=== PATIENT | male | born 1990 | race Two or more races ===

== ENCOUNTER 2020-04-04 16:38 | Emergency (ER) | payer SELFPAY ==
[~2020-04-04] VITALS: Ht 180.3 cm; Wt 106.4 kg
[2020-04-04 19:27] LABS: BASOPHILS % (AUTO) 0.7 % (0.0-2.0); EOSINOPHILS % (AUTO) 0.2 % (1.0-6.0); HEMATOCRIT 42.6 % (41-53); HEMOGLOBIN 13.8 g/dL (13.5-17.5); LYMPHOCYTES # (AUTO) 2.4 K/uL (1.0-4.8); LYMPHOCYTES % (AUTO) 25.7 % (22.0-44.0); MEAN CORPUSCULAR HEMOGLOBIN 28.8 pg (26.0-34.0); MEAN CORPUSCULAR HGB CONC 32.3 G/dL (31.0-37.0); MEAN CORPUSCULAR VOLUME 89 fL (80-100); MONOCYTES # (AUTO) 0.5 K/uL (0.1-1.0); MONOCYTES % (AUTO) 5.8 % (2.0-9.0); NEUTROPHILS # (AUTO) 6.4 K/uL (1.8-7.7); NEUTROPHILS % (AUTO) 67.6 % (40.0-70.0); PLATELET COUNT (AUTO) 230 K/uL (150-450); RED BLOOD CELL COUNT(AUTO) 4.77 MIL/uL (4.50-5.90); RED CELL DISTRIBUTION WIDTH 13.6 % (11.5-14.5)
[2020-04-04 19:33] LABS: ANION GAP 8 mmol/L (8-16); CALCIUM, TOTAL 9.3 mg/dL (8.8-10.5); CARBON DIOXIDE 28 mmol/L (22-29); CHLORIDE 106 mmol/L (98-107); CREATININE 0.93 mg/dL (0.60-1.30); GLOMERULAR FILTR. RATE CALC > 60 mL/min (>60); GLUCOSE,RANDOM 93 mg/dL (70-110); POTASSIUM 4.2 mmol/L (3.5-5.1); SODIUM SERUM 142 mmol/L (136-145); UREA NITROGEN, BLOOD 15 mg/dL (7-18)
[2020-04-04 19:40] LABS: ALANINE AMINOTRANSFERASE 29 U/L (12-78); ALBUMIN 4.5 g/dL (3.4-5.0); ALKALINE PHOSPHATASE 65 U/L (46-116); ASPARTATE AMINOTRANSFERASE 23 U/L (15-37); BILIRUBIN,TOTAL 0.3 mg/dL (0.1-1.0); TOTAL PROTEIN, SERUM 8.3 g/dL (6.4-8.2)
[2020-04-04 19:41] LABS: INR 1.1 (0.9-1.1); PROTHROMBIN TIME 11.7 SEC (9.4-11.6)
[2020-04-04 19:53] VITALS: BP 140/75
== END 2020-04-04 21:01 | disposition home or self-care (01) ==
LOC: EMS 16:39
DX: J02.9 Acute pharyngitis, unspecified (principal); R09.81 Nasal congestion; F12.90 Cannabis use, unspecified, uncomplicated
CPT/HCPCS: 36415-L1; 36415-TC; 71046; 71046-TC

== ENCOUNTER 2021-04-19 14:28 | Emergency (ER) | payer OTHER ==
[~2021-04-19] VITALS: Ht 180.3 cm; Wt 97.7 kg
[2021-04-19 14:55] VITALS: BP 135/67
== END 2021-04-19 16:47 | disposition home or self-care (01) ==
LOC: EMS 14:28
DX: K21.00 Gastro-esophageal reflux disease with esophagitis, without bleeding (principal); F12.90 Cannabis use, unspecified, uncomplicated
CPT/HCPCS: 71046; 99283

== ENCOUNTER 2021-05-04 11:52 | Emergency (ER) | payer OTHER ==
[~2021-05-04] VITALS: Ht 188 cm; Wt 100.0 kg
[2021-05-04 11:53] VITALS: BP 111/73
== END 2021-05-04 14:37 | disposition home or self-care (01) ==
LOC: EMS 12:02
DX: R04.2 Hemoptysis (principal); F12.90 Cannabis use, unspecified, uncomplicated
CPT/HCPCS: 99281; Z7502